=== PATIENT | male | born 1965 | race African-American/Black ===

== ENCOUNTER 2017-01-31 14:27 | Inpatient (IN) | payer OTHER ==
[2017-01-31 17:07] VITALS: BMI 18.8
--- NOTE | 2017-01-31 17:23 | HP ---
CIWA Score - CIWA Score Nausea/Vomitin-Mild Nausea/No Vomiting Muscle Tremors: 4-Moderate,w/Arms Extend Anxiety: 4-Mod. Anxious/Guarded Agitation: 3 Paroxysmal Sweats: 1-Minimal Palms Moist Orientation: 0-Oriented Tacttile Disturbances: 0-None Auditory Disturbances: 0-None Visual Disturbances: 0-None Headache: 2-Mild CIWA-Ar Total Score: 15 Admission ROS BHS - HPI Chief Complaint: WITHDRAWAL SX Allergies/Adverse Reactions: Allergies Allergy/AdvReac Type Severity Reaction Status Date / Time lactose Allergy Intermediate Nausea Verified 01/31/17 17:36 green vegetables Allergy Intermediate Hives Uncoded 01/31/17 17:36 History of Present Illness: 51 YEARS OLD MALE WITH LONG HISTORY OF ALCOHOL DEPENDENCE, HAS ASTHMA HYPERLIPIDEMIA, WEIGHT LOSS, AND DEPRESSION IS ADMITTED TO DETOX Exam Limitations: No Limitations - Ebola screening Have you traveled outside of the country in the last 21 days: No Have you had contact with anyone from an Ebola affected area: No Have you been sick,other than usual withdrawal symptoms: No Do you have a fever: No - Review of Systems Constitutional: Loss of Appetite, Changes in sleep, Unintentional Wgt. Loss, Unexplained wgt Loss EENT: reports: Blurred Vision (EYE GLASSES), Dental Problems (MULTIPLE TEETH MISSING) Respiratory: reports: Shortness of Breath Cardiac: reports: No Symptoms Reported GI: reports: Nausea, Poor Appetite, Poor Fluid Intake, Abdominal cramping : reports: No Symptoms Reported Musculoskeletal: reports: No Symptoms Reported Integumentary: reports: Change in Color (ARMS HYPOPIGMENTATION X 3 MONTHS) Neuro: reports: Seizure (LAST EPISODE 25 YEARS AGO), Tremors Endocrine: reports: No Symptoms Reported Hematology: reports: No Symptoms Reported Psychiatric: reports: No Sypmtoms Reported, Judgement Intact, Orientated x3, Depressed Other Systems: Reviewed and Negative Patient History - Patient Medical History Hx Anemia: No Hx Asthma: Yes (Pt is on MDI.) Hx Chronic Obstructive Pulmonary Disease (COPD): No Hx Cancer: No Hx Cardiac Disorders: No Hx Congestive Heart Failure: No Hx Hypertension: No Hx Hypercholesterolemia: Yes Hx Pacemaker: No HX Cerebrovascular Accident: No Hx Seizures: Yes (LAST EPISODE 26 YEARS OLD) Hx Dementia: No Hx Diabetes: No Hx Gastrointestinal Disorders: No Hx Liver Disease: No Hx Genitourinary Disorders: No Hx Sexually Transmitted Disorders: No Hx Renal Disease (ESRD): No Hx Thyroid Disease: No Hx Human Immunodeficiency Virus (HIV): No Hx Hepatitis C: No Hx Depression: No Hx Suicide Attempt: No Hx Bipolar Disorder: No Hx Schizophrenia: Yes - Patient Surgical History Past Surgical History: Yes Hx Neurologic Surgery: No Hx Cataract Extraction: Yes (11 YEARS OLD) Hx Cardiac Surgery: No Hx Lung Surgery: No Hx Breast Surgery: No Hx Breast Biopsy: No Hx Abdominal Surgery: No Hx Appendectomy: No Hx Cholecystectomy: No Hx Genitourinary Surgery: No Hx Orthopedic Surgery: No Anesthesia Reaction: No - PPD History Previous Implant?: Yes Documented Results: Negative w/o proof Implanted On Prior R Admission?: Yes Date: 07/24/13 PPD to be Administered?: Yes - Smoking Cessation Smoking history: Never smoked Have you smoked in the past 12 months: No Aproximately how many cigarettes per day: 0 Cigars Per Day: 0 Hx Chewing Tobacco Use: No Initiated information on smoking cessation: No - Substance & Tx. History Hx Alcohol Use: Yes Hx Substance Use: No Substance Use Type: Alcohol Hx Substance Use Treatment: Yes (2011) - Substances Abused Alcohol Route: Oral Frequency: Daily Amount used: [id number] Age of first use: 13 Date of Last Use: 01/30/17 Family Disease History - Family Disease History Family Disease History: Heart Disease: Mother (), Sister (), [place] : Sister, Other: Father (/SERVICE), Mother, Brother (/SEIZURE), Sister Admission Physical Exam BHS - Vital Signs Vital Signs: Vital Signs - 24 hr 01/31/17 17:04 Temperature 97.2 F L Pulse Rate 100 H Respiratory 20 Rate Blood Pressure 128/73 - Physical General Appearance: Yes: Appropriately Dressed, Mild Distress, Alcohol on Breath , Thin, Tremorous, Irritable, Sweating, Anxious HEENTM: Yes: Hearing grossly Normal, Normal ENT Inspection, Normocephalic, Normal Voice Respiratory: Yes: Chest Non-Tender, No Respiratory Distress, No Accessory Muscle Use, Wheezing, Expiration Neck: Yes: Supple, Trachea in good position Breast: Yes: Breasts Symetrical Cardiology: Yes: Regular Rhythm, S1, S2, Tachycardia Abdominal: Yes: Normal Bowel Sounds, Non Tender, Soft Genitourinary: Yes: Within Normal Limits Back: Yes: Normal Inspection Musculoskeletal: Yes: full range of Motion, Gait Steady Extremities: Yes: Normal Inspection, Normal Range of Motion, Non-Tender, Tremors Neurological: Yes: rn clinical appeals II-XII NML intact, Fully Oriented, Alert, Motor Strength 5/5, Normal Response, Depressed Affect Integumentary: Yes: Warm Lymphatic: Yes: Within Normal Limits - Diagnostic (1) Asthma Current Visit: Yes Status: Chronic Qualifiers: Asthma severity: mild intermittent Asthma complication type: with status asthmaticus Qualified Code(s): J45.22 - Mild intermittent asthma with status asthmaticus (2) Schizophrenia, paranoid type Current Visit: Yes Status: Suspected (3) Alcohol dependence with uncomplicated withdrawal Current Visit: Yes Status: Acute (4) Weight loss Current Visit: Yes Status: Acute (5) Hypercholesteremia Current Visit: Yes Status: Chronic Cleared for Admission S - Detox or Rehab [facility] Level of Care: Medically Managed Detox Regimen/Protocol: Librium S Breath Alcohol Content Breath Alcohol Content: 0.051 Urine Drug Screen - Results Drug Screen Negative: Yes
[2017-01-31] MEDS ORDERED: chlordiazePOXIDE HCL 25 MG CAPSULE PO PRN (17:38)
[2017-01-31] MEDS ORDERED: MAG HYDROX/AL HYDROX/SIMETH 30 ML UNIT-DOSE CUP PO PRN (17:38)
[2017-01-31] MEDS ORDERED: P-EPHED 60MG/TRIPROLIDI 2.5MG TABLET PO PRN (17:38)
[2017-01-31] MEDS ORDERED: MENTHOL/PHENOL 1 EACH UD MM PRN (17:38)
[2017-01-31] MEDS ORDERED: ACETAMINOPHEN 325 MG TABLET (FP) PO PRN (17:38)
[2017-01-31] MEDS ORDERED: guaiFENesin/D-METHORPHAN HB 10 ML UNIT-DOSE CUPS PO PRN (17:38)
[2017-01-31] MEDS ORDERED: LOPERAMIDE HCL 2 MG CAPSULE PO PRN (17:38)
[2017-01-31] MEDS ORDERED: MAGNESIUM HYDROX 2400MG/30ML ORAL SUSPENSION 30 ML CUP PO PRN (17:38)
[2017-01-31] MEDS ORDERED: IBUPROFEN 400 MG TABLET (FP) PO PRN (17:38)
[2017-01-31] MEDS ORDERED: hydrOXYzine PAMOATE 50 MG CAPSULE (FP) PO PRN (17:38)
[2017-01-31] MEDS ORDERED: MAGNESIUM CITRATE 300 ML BOTTLE PO PRN (17:38)
[2017-01-31] MEDS ORDERED: ALBUTEROL SO4 6.7 GM HFA INHALER IH PRN (17:40)
[2017-01-31] MEDS ORDERED: chlordiazePOXIDE HCL 25 MG CAPSULE PO ONE (19:00)
[2017-01-31] MEDS ORDERED: COLLOIDAL OATMEAL 1 BAR EACH TP PRN (19:45)
[2017-01-31 22:03] LABS: URINE APPEARANCE CLEAR; URINE BILIRUBIN NEGATIVE (NEGATIVE); URINE BLOOD NEGATIVE (NEGATIVE); URINE COLOR COLORLESS; URINE GLUCOSE (UA) NEGATIVE (NEGATIVE); URINE KETONE NEGATIVE (NEGATIVE); URINE LEUK ESTERASE NEGATIVE (NEGATIVE); URINE NITRITE NEGATIVE (NEGATIVE); URINE PROTEIN NEGATIVE (NEGATIVE); URINE UROBILINOGEN NEGATIVE mg/dL (0.2-1.0)
[2017-01-31] MEDS: ATORVASTATIN CA 10 MG TABLET (FP) PO SCH (22:12)
[2017-01-31] MEDS: THIAMINE HCL 100 MG TABLET (FP) PO SCH (22:12)
[2017-01-31] MEDS: diphenhydrAMINE HCL 50 MG CAPSULE PO PRN (22:13)
[2017-01-31] MEDS: chlordiazePOXIDE HCL 25 MG CAPSULE PO SCH (22:14)
[2017-02-01] MEDS: chlordiazePOXIDE HCL 25 MG CAPSULE PO SCH ×4 (05:10→22:06)
[2017-02-01 09:41] LABS: MCH 30.2 pg (25.7-33.7); MCHC 32.6 g/dl (32.0-35.9); MEAN CELL VOLUME 92.6 fl (80-96); MEAN PLT VOLUME 8.4 fl (7.5-11.1); PLATELET COUNT 172 K/MM3 (134-434); RDW 15.7 % (11.9-15.9)
[2017-02-01 09:46] LABS: ALBUMIN 3.2 g/dl (3.4-5.0); ALK PHOS 80 U/L (45-117); ANION GAP 7 (8-16); BILIRUBIN,TOTAL 0.6 mg/dL (0.2-1.0); CALCIUM 8.7 mg/dL (8.5-10.1); CO2 27 mmol/L (21-32); CREATININE 0.8 mg/dL (0.7-1.3); GLUCOSE,RANDOM 83 mg/dL (74-106); SGOT/AST 31 U/L (15-37); SGPT/ALT 19 U/L (12-78); TOT PROT 7.5 g/dl (6.4-8.2)
--- NOTE | 2017-02-01 09:55 | EKG ---
Test Reason : Blood Pressure : / mmHG Vent. Rate : 087 BPM Atrial Rate : 087 BPM P-R Int : 142 ms QRS Dur : 084 ms QT Int : 396 ms P-R-T Axes : 076 078 074 degrees QTc Int : 476 ms NORMAL SINUS RHYTHM POSSIBLE LEFT ATRIAL ENLARGEMENT ANTERIOR INFARCT , AGE UNDETERMINED ABNORMAL ECG NO PREVIOUS ECGS AVAILABLE Confirmed by SHAQUILLE WALDROP MD ([id number]) on 02/01/2017 9:55:06 AM Referred By: Confirmed By:SHAQUILLE WALDROP MD
[2017-02-01] MEDS: PRENATAL VITAMINS W/ FOLIC ACID TABLET (FP) PO SCH (10:02)
--- NOTE | 2017-02-01 10:59 | CONSULT ---
[facility] Psychiatric Consult - Data Date of interview: 02/01/17 Admission source: [facility] Identifying data: Readmission to [facility] for this 51 y/o male seeking detox treatment on for alcohol dependence.Patient is , a father of six,domiciled,unemployed and supported on Public Assistance. Substance Abuse History: Confirmed by patient. Smoking Cessation. Smoking history: Never smoked. Have you smoked in the past 12 months: No. Aproximately how many cigarettes per day: 0. Cigars Per Day: 0. Hx Chewing Tobacco Use: No. Initiated information on smoking cessation: No. - Substance & Tx. History. Hx Alcohol Use: Yes. Hx Substance Use: No. Substance Use Type : Alcohol. Hx Substance Use Treatment: Yes (2011). - Substances Abused. Alcohol. Route: Oral. Frequency: Daily. Amount used: [id number]. Age of first use: 13. Date of Last Use: 01/30/17 Medical History: Bronchial asthma,hypopigmentationo the skin and hypercholesterolemia. Psychiatric History: Patient admits to distant history of psychiatric hospitalization (20 years ago at [facility]).He endorses the diagnosis of Paranoid Schizophrenia and he continues to get his psychiatric OPD care at the [facility] mental health clinic.Managed with risperdal 2 mg/hs.Mr Jean-Baptiste admits to non-adherence to his medications for past two weeks.He denies history of suicide attempts. Physical/Sexual Abuse/Trauma History: Patient denies. Additional Comment: Drug Screen is negative. Mental Status Exam - Mental Status Exam Alert and Oriented to: Time, Place, Person Cognitive Function: Good Patient Appearance: Unkempt, Disheveled (skin appears hypopigmented) Affect: Normal Range Patient Behavior: Fatigued, Cooperative Speech Pattern: Clear Voice Loudness: Normal Thought Process: Goal Oriented Thought Disorder: Not Present Hallucinations: Denies Suicidal Ideation: Denies Homicidal Ideation: Denies Insight/Judgement: Poor Sleep: Well Appetite: Good Muscle strength/Tone: Normal Gait/Station: Normal Psychiatric Findings - Problem List ([place] 1, 2,3) (1) Schizophrenia, paranoid type Current Visit: Yes Status: Chronic Comment: Reported by the patient.Followed at [facility] OPD.On risperdal 2 mg/day. (2) Alcohol dependence with uncomplicated withdrawal Current Visit: Yes Status: Acute (3) Weight loss Current Visit: Yes Status: Acute (4) Asthma Current Visit: Yes Status: Chronic Qualifiers: Asthma severity: mild intermittent Asthma complication type: with status asthmaticus Qualified Code(s): J45.22 - Mild intermittent asthma with status asthmaticus (5) Hypercholesteremia Current Visit: Yes Status: Chronic - Initial Treatment Plan Initial Treatment Plan: Psychoeducation.Detoxification.Risperdal 1 mg po bid.Side effects/benefits discussed with patient.Made aware of risk of abnormal involuntary movements (dyskinesias,akathisia,akinesia),sexual dysfunction, galactorrhea/gynecomastia,cardiovascular adverse events and metabolic syndrome.Patient insists on resuming risperdal.Observation.
--- NOTE | 2017-02-01 11:31 | PN ---
[facility] CIWA - CIWA Score Nausea/Vomitin-No Nausea/No Vomiting Muscle Tremors: 4-Moderate,w/Arms Extend Anxiety: 4-Mod. Anxious/Guarded Agitation: 4-Moderately Restless Paroxysmal Sweats: No Perspiration Orientation: 0-Oriented Tacttile Disturbances: 3-Moderate Itch/Numb/Burn Auditory Disturbances: 0-None Visual Disturbances: 0-None Headache: 0-None Present CIWA-Ar Total Score: 15 BHS Progress Note (SOAP) Subjective: ANXIETY,SWEATS,SLIGHT TREMORS,INTERMITTENT SLEEP. Objective: 02/01/17 11:30 Vital Signs Temperature 98.8 F 02/01/17 09:45 Pulse Rate 98 H 02/01/17 09:45 Respiratory Rate 18 02/01/17 09:45 Blood Pressure 142/77 02/01/17 09:45 O2 Sat by Pulse Oximetry (%) Laboratory Last Values WBC 3.0 K/mm3 (4.0-10.0) L D 02/01/17 07:00 RBC 4.46 M/mm3 (4.00-5.60) 02/01/17 07:00 Hgb 13.5 GM/dL (11.7-16.9) 02/01/17 07:00 Hct 41.3 % (35.4-49) 02/01/17 07:00 MCV 92.6 fl (80-96) 02/01/17 07:00 MCH 30.2 pg (25.7-33.7) 02/01/17 07:00 MCHC 32.6 g/dl (32.0-35.9) 02/01/17 07:00 RDW 15.7 % (11.9-15.9) D 02/01/17 07:00 Plt Count 172 K/MM3 (134-434) D 02/01/17 07:00 MPV 8.4 fl (7.5-11.1) 02/01/17 07:00 Sodium 141 mmol/L (136-145) 02/01/17 07:00 Potassium 4.4 mmol/L (3.5-5.1) 02/01/17 07:00 Chloride 107 mmol/L (98-107) 02/01/17 07:00 Carbon Dioxide 27 mmol/L (21-32) 02/01/17 07:00 Anion Gap 7 (8-16) L 02/01/17 07:00 BUN 6 mg/dL (7-18) L 02/01/17 07:00 Creatinine 0.8 mg/dL (0.7-1.3) D 02/01/17 07:00 Creat Clearance w eGFR > 60 (>60) 02/01/17 07:00 Random Glucose 83 mg/dL (74-106) 02/01/17 07:00 Calcium 8.7 mg/dL (8.5-10.1) 02/01/17 07:00 Total Bilirubin 0.6 mg/dL (0.2-1.0) D 02/01/17 07:00 AST 31 U/L (15-37) 02/01/17 07:00 ALT 19 U/L (12-78) D 02/01/17 07:00 Alkaline Phosphatase 80 U/L (45-117) 02/01/17 07:00 Total Protein 7.5 g/dl (6.4-8.2) 02/01/17 07:00 Albumin 3.2 g/dl (3.4-5.0) L D 02/01/17 07:00 Urine Color Colorless 01/31/17 21:00 Urine Appearance Clear 01/31/17 21:00 Urine pH 5.0 (5.0-8.0) 01/31/17 21:00 Ur Specific [place] <= 1.005 (1.005-1.025) 01/31/17 21:00 Urine Protein Negative (NEGATIVE) 01/31/17 21:00 Urine Glucose (UA) Negative (NEGATIVE) 01/31/17 21:00 Urine Ketones Negative (NEGATIVE) 01/31/17 21:00 Urine Blood Negative (NEGATIVE) 01/31/17 21:00 Urine Nitrite Negative (NEGATIVE) 01/31/17 21:00 Urine Bilirubin Negative (NEGATIVE) 01/31/17 21:00 Urine Urobilinogen Negative mg/dL (0.2-1.0) 01/31/17 21:00 RPR Titer Nonreactive (NONREACTIVE) 02/01/17 07:00 Assessment: 02/01/17 11:30 WITHDRAWAL SX Plan: CONTINUE DETOX
[2017-02-01] MEDS: THIAMINE HCL 100 MG TABLET (FP) PO SCH (22:06)
[2017-02-01] MEDS: risperiDONE 1 MG TABLET (FP) PO SCH (22:06)
[2017-02-01] MEDS: diphenhydrAMINE HCL 50 MG CAPSULE PO PRN (22:06)
[2017-02-01] MEDS: ATORVASTATIN CA 10 MG TABLET (FP) PO SCH (22:06)
[2017-02-02] MEDS: chlordiazePOXIDE HCL 25 MG CAPSULE PO SCH ×3 (05:21→17:22)
[2017-02-02] MEDS: risperiDONE 1 MG TABLET (FP) PO SCH ×2 (10:14→22:23)
[2017-02-02] MEDS: PRENATAL VITAMINS W/ FOLIC ACID TABLET (FP) PO SCH (10:14)
--- NOTE | 2017-02-02 15:56 | PN ---
[facility] CIWA - CIWA Score Nausea/Vomitin-No Nausea/No Vomiting Muscle Tremors: 2 Anxiety: 4-Mod. Anxious/Guarded Agitation: 3 Paroxysmal Sweats: 2 Orientation: 2-Disoriented Date<2 days Tacttile Disturbances: 1-Very Mild Itch/Numbness Auditory Disturbances: 2-Mild Harshness/Frighten Visual Disturbances: 1-Very Mild Sensitivity Headache: 0-None Present CIWA-Ar Total Score: 17 S Progress Note (SOAP) Subjective: Fatigue, Anxious, Tremors. Objective: PT. A & O X 2 (DISORIENTED ABOUT DAY / DATE). PATIENT OBSERVED AMBULATING ON UNIT. NO ACUTE DISTRESS. 02/02/17 15:54 Vital Signs Temperature 98.6 F 02/02/17 15:14 Pulse Rate 86 02/02/17 15:14 Respiratory Rate 18 02/02/17 15:14 Blood Pressure 122/72 02/02/17 15:14 O2 Sat by Pulse Oximetry (%) Laboratory Tests 01/31/17 02/01/17 02/01/17 21:00 07:00 07:00 WBC 3.0 L D RBC 4.46 Hgb 13.5 Hct 41.3 MCV 92.6 MCH 30.2 MCHC 32.6 RDW 15.7 D Plt Count 172 D MPV 8.4 Sodium 141 Potassium 4.4 Chloride 107 Carbon Dioxide 27 Anion Gap 7 L BUN 6 L Creatinine 0.8 D Creat Clearance w eGFR > 60 Random Glucose 83 Calcium 8.7 Total Bilirubin 0.6 D AST 31 ALT 19 D Alkaline Phosphatase 80 Total Protein 7.5 Albumin 3.2 L D Urine Color Colorless Urine Appearance Clear Urine pH 5.0 Ur Specific [place] <= 1.005 Urine Protein Negative Urine Glucose (UA) Negative Urine Ketones Negative Urine Blood Negative Urine Nitrite Negative Urine Bilirubin Negative Urine Urobilinogen Negative RPR Titer 02/01/17 07:00 WBC RBC Hgb Hct MCV MCH MCHC RDW Plt Count MPV Sodium Potassium Chloride Carbon Dioxide Anion Gap BUN Creatinine Creat Clearance w eGFR Random Glucose Calcium Total Bilirubin AST ALT Alkaline Phosphatase Total Protein Albumin Urine Color Urine Appearance Urine pH Ur Specific [place] Urine Protein Urine Glucose (UA) Urine Ketones Urine Blood Urine Nitrite Urine Bilirubin Urine Urobilinogen RPR Titer Nonreactive LABS NOTED. Assessment: 02/02/17 15:55 WITHDRAWAL SYMPTOMS. Plan: CONTINUE DETOX. INCREASE DAILY PO FLUID INTAKE.
[2017-02-02] MEDS: ATORVASTATIN CA 10 MG TABLET (FP) PO SCH (22:23)
[2017-02-02] MEDS: chlordiazePOXIDE 5 MG CAPSULE PO SCH (22:23)
[2017-02-02] MEDS: THIAMINE HCL 100 MG TABLET (FP) PO SCH (22:23)
[2017-02-02] MEDS: diphenhydrAMINE HCL 50 MG CAPSULE PO PRN (22:25)
[2017-02-03] MEDS: chlordiazePOXIDE 5 MG CAPSULE PO SCH ×3 (05:34→17:20)
[2017-02-03 10:06] LABS: MCH 30.6 pg (25.7-33.7); MCHC 32.9 g/dl (32.0-35.9); MEAN PLT VOLUME 9.2 fl (7.5-11.1); PLATELET COUNT 137 K/MM3 (134-434); RDW 15.3 % (11.9-15.9); WHITE BLOOD COUNT 4.3 K/mm3 (4.0-10.0)
[2017-02-03] MEDS: risperiDONE 1 MG TABLET (FP) PO SCH ×2 (10:07→21:59)
[2017-02-03] MEDS: PRENATAL VITAMINS W/ FOLIC ACID TABLET (FP) PO SCH (10:08)
[2017-02-03 10:56] LABS: PLATELET ESTIMATE DECREASED (NORMAL)
[2017-02-03 10:57] LABS: TOTAL CELLS COUNTED 100
--- NOTE | 2017-02-03 15:29 | PN ---
BHS Progress Note (SOAP) Subjective: Anxious, restless, nausea, interrupted sleep. Patient requesting to be discharged at 7am tomorrow. Objective: 02/03/17 15:28 Last Vital Signs Temp Pulse Resp BP Pulse Ox 98.2 F 96 H 20 120/85 02/03/17 14:42 02/03/17 14:42 02/03/17 14:42 02/03/17 14:42 Laboratory Tests 01/31/17 02/01/17 02/01/17 21:00 07:00 07:00 WBC 3.0 L D RBC 4.46 Hgb 13.5 Hct 41.3 MCV 92.6 MCH 30.2 MCHC 32.6 RDW 15.7 D Plt Count 172 D MPV 8.4 Total Counted Neutrophils % Neutrophils % (Manual) Lymphocytes % Lymphocytes % (Manual) Monocytes % (Manual) Eosinophils % (Manual) Platelet Estimate Platelet Comment Sodium 141 Potassium 4.4 Chloride 107 Carbon Dioxide 27 Anion Gap 7 L BUN 6 L Creatinine 0.8 D Creat Clearance w eGFR > 60 Random Glucose 83 Calcium 8.7 Total Bilirubin 0.6 D AST 31 ALT 19 D Alkaline Phosphatase 80 Total Protein 7.5 Albumin 3.2 L D Urine Color Colorless Urine Appearance Clear Urine pH 5.0 Ur Specific [place] <= 1.005 Urine Protein Negative Urine Glucose (UA) Negative Urine Ketones Negative Urine Blood Negative Urine Nitrite Negative Urine Bilirubin Negative Urine Urobilinogen Negative RPR Titer 02/01/17 02/03/17 07:00 08:00 WBC 4.3 D RBC 3.99 L Hgb 12.2 Hct 37.1 MCV 93.0 MCH 30.6 MCHC 32.9 RDW 15.3 Plt Count 137 D MPV 9.2 Total Counted 100 Neutrophils % No Result Required. Neutrophils % (Manual) 48 Lymphocytes % No Result Required. Lymphocytes % (Manual) 25 Monocytes % (Manual) 24 H* Eosinophils % (Manual) 3 Platelet Estimate Decreased Platelet Comment No clumping noted Sodium Potassium Chloride Carbon Dioxide Anion Gap BUN Creatinine Creat Clearance w eGFR Random Glucose Calcium Total Bilirubin AST ALT Alkaline Phosphatase Total Protein Albumin Urine Color Urine Appearance Urine pH Ur Specific [place] Urine Protein Urine Glucose (UA) Urine Ketones Urine Blood Urine Nitrite Urine Bilirubin Urine Urobilinogen RPR Titer Nonreactive Labs noted Assessment: 02/03/17 15:29 Withdrawal symptoms Plan: Continue detox
[2017-02-03] MEDS: THIAMINE HCL 100 MG TABLET (FP) PO SCH (21:59)
[2017-02-03] MEDS: ATORVASTATIN CA 10 MG TABLET (FP) PO SCH (21:59)
[2017-02-03] MEDS: chlordiazePOXIDE HCL 10 MG CAPSULE PO SCH (21:59)
[2017-02-03] MEDS: diphenhydrAMINE HCL 50 MG CAPSULE PO PRN (22:00)
[2017-02-04] MEDS: chlordiazePOXIDE HCL 10 MG CAPSULE PO SCH (05:38)
[2017-02-04 06:20] VITALS: BP 128/77; PULSE 97; TEMP 96.9
--- NOTE | 2017-02-04 09:09 | DS ---
[facility] Detox Discharge Summary Admission Date: 01/31/17 Discharge Date: 02/04/17 - History Present History: Alcohol Dependence Pertinent Past History: wt loss, seizures, asthma, anxiety, depression, insomnia - Physical Exam Results Vital Signs: Vital Signs Temperature 96.9 F L 02/04/17 06:20 Pulse Rate 97 H 02/04/17 06:20 Respiratory Rate 18 02/04/17 06:20 Blood Pressure 128/77 02/04/17 06:20 O2 Sat by Pulse Oximetry (%) Laboratory Tests 01/31/17 02/01/17 02/01/17 21:00 07:00 07:00 WBC 3.0 L D RBC 4.46 Hgb 13.5 Hct 41.3 MCV 92.6 MCH 30.2 MCHC 32.6 RDW 15.7 D Plt Count 172 D MPV 8.4 Total Counted Neutrophils % Neutrophils % (Manual) Lymphocytes % Lymphocytes % (Manual) Monocytes % (Manual) Eosinophils % (Manual) Platelet Estimate Platelet Comment Sodium 141 Potassium 4.4 Chloride 107 Carbon Dioxide 27 Anion Gap 7 L BUN 6 L Creatinine 0.8 D Creat Clearance w eGFR > 60 Random Glucose 83 Calcium 8.7 Total Bilirubin 0.6 D AST 31 ALT 19 D Alkaline Phosphatase 80 Total Protein 7.5 Albumin 3.2 L D Urine Color Colorless Urine Appearance Clear Urine pH 5.0 Ur Specific [place] <= 1.005 Urine Protein Negative Urine Glucose (UA) Negative Urine Ketones Negative Urine Blood Negative Urine Nitrite Negative Urine Bilirubin Negative Urine Urobilinogen Negative RPR Titer 02/01/17 02/03/17 07:00 08:00 WBC 4.3 D RBC 3.99 L Hgb 12.2 Hct 37.1 MCV 93.0 MCH 30.6 MCHC 32.9 RDW 15.3 Plt Count 137 D MPV 9.2 Total Counted 100 Neutrophils % No Result Required. Neutrophils % (Manual) 48 Lymphocytes % No Result Required. Lymphocytes % (Manual) 25 Monocytes % (Manual) 24 H* Eosinophils % (Manual) 3 Platelet Estimate Decreased Platelet Comment No clumping noted Sodium Potassium Chloride Carbon Dioxide Anion Gap BUN Creatinine Creat Clearance w eGFR Random Glucose Calcium Total Bilirubin AST ALT Alkaline Phosphatase Total Protein Albumin Urine Color Urine Appearance Urine pH Ur Specific [place] Urine Protein Urine Glucose (UA) Urine Ketones Urine Blood Urine Nitrite Urine Bilirubin Urine Urobilinogen RPR Titer Nonreactive Pertinent Admission Physical Exam Findings: withdrawal sx - Treatment Hospital Course: Detox Protocol Followed, Detoxed Safely, Responded well, Discharged Condition Good, Rehab Referral Accepted - Medication Discharge Medications: Ambulatory Orders Atorvastatin Ca [Lipitor] 40 mg PO HS 07/22/13 Albuterol Sulfate Inhaler - [Ventolin HFA Inhaler -] 2 inh PO Q4H PRN #1 canister 07/26/13 Phenytoin Na Extended [Dilantin -] 300 mg PO DAILY #30 capsule 07/26/13 Risperidone [Risperdal -] 2 mg PO HS #30 tablet 02/01/17 - Diagnosis (1) Alcohol dependence with uncomplicated withdrawal Status: Chronic (2) Seizure disorder Status: Chronic (3) Asthma Status: Chronic Qualifiers: Asthma severity: mild intermittent Asthma complication type: with status asthmaticus Qualified Code(s): J45.22 - Mild intermittent asthma with status asthmaticus; J45.22 - Mild intermittent asthma with status asthmaticus; J45.22 - Mild intermittent asthma with status asthmaticus (4) Hypercholesteremia Status: Chronic (5) Schizophrenia, paranoid type Status: Chronic - AMA Did Patient Leave Against Medical Advice: No
== END 2017-02-04 07:11 | disposition home or self-care (01) | DRG 775 ==
LOC: YASAS 14:27 → Y3N 18:03
PROVIDERS: ADMIT Internal Medicine; ATTEND Internal Medicine
PROC: HZ2ZZZZ Detoxification Services for Substance Abuse Treatment (ICD-10-PCS; principal; 2017-01-31)
DX: F10.230 Alcohol dependence with withdrawal, uncomplicated (principal); F25.9 Schizoaffective disorder, unspecified; J45.22 Mild intermittent asthma with status asthmaticus; E78.5 Hyperlipidemia, unspecified; R00.0 Tachycardia, unspecified; Z91.011 Allergy to milk products; Z91.018 Allergy to other foods; Z86.69 Personal history of other diseases of the nervous system and sense organs; Z87.898 Personal history of other specified conditions
CPT/HCPCS: 36415; 80053; 81003; 85025; 85027; 86593; 93005; 93010; J2794